=== PATIENT | female | born 1955 | race Caucasian/White ===

== ENCOUNTER 2017-01-22 11:01 | Emergency (ER) | payer OTHER ==
[~2017-01-22] VITALS: Ht 175.3 cm; Wt 77.9 kg
[~2017-01-22 11:01] MED LIST: ADVAIR 250/501 DISK IH; ADVIL,NUPRIN,M200 MG PO; ANTIVERT25 MG PO; ASPIR 8181 M1 PO; BUPROPION XL150 MG PO; CALCIUM + D SO1 EACH PO; CIPRO500 MG PO; DALIRESP500 MCG PO; EXCEDRIN MIGRA1 EAC3 PO; FENOFIBRATE160 M1 PO; FIORICET WI1 CAPSULE PO; FIORICET,ESG1 TABLET PO; FISH OIL300 MG PO; HEADACHE PAIN1 EACH PO; HYDROXYZINE HCL25 MG PO; HYOSCYAMINE0.125 M2 PO; IBUPROFEN200 M1 PO; KEFLEX500 MG PO; KLONOPIN0.5 M1 PO; OMEPRAZOLE20 MG PO; SIMVASTATIN40 MG PO; SINGULAIR10 MG PO; TRAMADOL HCL50 MG PO; VALIUM5 MG PO; VALTREX1000 MG PO; VITAMIN B-6100 MG PO; ZOFRAN ODT4 MG PO; ZOFRAN4 MG PO
[2017-01-22 11:18] LABS: HEMATOCRIT 39.1 % (36.0-46.0); MCH 27.7 PG (29.0-34.0); MCHC 32.7 G/DL (30.0-36.0); MCV 84.6 FL (83-99); PLATELET COUNT 261 K/uL (156-360); RBC DIS.WIDTH-CV 13.2 % (11.8-14.6); RBC DIS.WIDTH-SD 40.2 % (39-53); RED BLOOD COUNT 4.62 M/uL (3.80-5.20); WHITE BLOOD COUNT 6.7 K/uL (4.1-10.2)
[2017-01-22 11:26] LABS: CHLORIDE 108 mEq/L (99-109); POTASSIUM 3.4 mEq/L (3.7-5.4); SODIUM 144 mEq/L (136-147)
[2017-01-22 11:28] LABS: GLUCOSE 107 mg/dL (70-99)
[2017-01-22 11:29] LABS: ANION GAP 10 MEQ/L (2-14)
[2017-01-22 11:31] LABS: GFR ESTIMATE (CALCULATED) > 59 mL/min/
[2017-01-22 11:32] LABS: UREA NITROGEN (BUN) 10 mg/dL (9-23)
[2017-01-22 12:12] LABS: TROP-I INTERPRETATION NEGATIVE; TROPONIN-I < 0.01 ng/mL (0.0-0.30)
[2017-01-22] MEDS ORDERED: GUAIFENESIN-DM1 EAC2 PO (12:27)
[2017-01-22 12:37] VITALS: BP 168/80
== END 2017-01-22 12:38 | disposition home or self-care (01) ==
LOC: EME 11:01
DX: J06.9 Acute upper respiratory infection, unspecified (principal)
CPT/HCPCS: 71020; 80048; 84484; 85027; 93005; 94640; 99281; 99283